=== PATIENT | male | born 1980 | race African-American/Black ===

== ENCOUNTER 2016-11-20 13:22 | Emergency (ER) | payer SELFPAY ==
[~2016-11-20] VITALS: Ht 170.2 cm; Wt 98.0 kg
[~2016-11-20 13:22] MED LIST: ERYT.5%O LEFT EYE; ULTR50TA PO
[2016-11-20 13:24] VITALS: BP 156/79; PULSE 104; RESP 17; TEMP 98.2; O2SAT 98
--- NOTE | 2016-11-20 13:35 | PD ---
Physical Exam Time Seen by Provider: 13:35 Narrative 36 y/o male with sore throat, h/a, cp with deep inspiration, cough. Vital signs reviewed. Seen at triage desk. Awaiting bed placement. Data Data Last Documented VS Vital Signs Date Time Temp Pulse Resp B/P Pulse Ox O2 Delivery O2 Flow Rate FiO2 11/20/16 13:24 98.2 104 17 156/79 98 MDM Medical Record Reviewed: Yes Supervised Visit with EDDIE: Carlos Slaughter Nov 20, 2016 13:35
--- NOTE | 2016-11-20 14:05 | PD ---
HPI Chief Complaint: Respiratory Symptoms Time Seen by Provider: 14:00 Travel History International Travel<30 days: No Contact w/Intl Traveler<30days: No Traveled to known affect area: No History of Present Illness HPI Patient comes in complaining of cold-like symptoms ongoing for 8 months. Patient reports intermittent cough, chest pain with deep, and headaches. Patient states today he awoke with sore throat. Patient states he's never been evaluated for this previously. Patient states a relative of his has influenza. Patient denies any nausea, vomiting, abdominal pain, loss change in bowel or bladder, numbness or tingling anywhere, shortness of breath, or fevers. Patient using [id number] medications and has been helping, however he did not have anything today as he was at work when he got feeling bad and decided come to the emergency department. Denies any recent travel or lower extremity edema. PFSH Past Medical History Medical History: Denies Significant Hx Tetanus Vaccination: < 5 Years Past Surgical History Surgical History: No Previous Surgery Social History Alcohol Use: No Tobacco Use: No Substance Use: No Allergies-Medications (Allergen,Severity, Reaction): Coded Allergies: No Known Allergies (Verified , 11/20/16) Reported Meds & Prescriptions Reported Meds & Active Scripts Active Ventolin Hfa 18 GM Inh (Albuterol Sulfate) 90 Mcg/Act Aer 2 Puff INH Q4H PRN Review of Systems Except as stated in HPI: all other systems reviewed are Neg Physical Exam Narrative GENERAL: Well-developed, overly nourished, in no acute distress, and non-ill appearing. SKIN: Focused skin assessment warm and dry. HEAD: Atraumatic. Normocephalic. EYES: Pupils equal and round. EOMI. No scleral icterus. No injection or drainage. ENT: No nasal bleeding or discharge. Mucous membranes pink and moist. Tympanic membranes pearly gloria bilaterally. Posterior pharynx nonerythematous without exudate. Uvula is midline. No tenderness to facial sinuses to palpation. NECK: Trachea midline. No cervical lymphadenopathy. Supple. No nuclear rigidity. CARDIOVASCULAR: Regular rate and rhythm. No murmur appreciated. RESPIRATORY: No accessory muscle use. No respiratory distress. Clear to auscultation. Breath sounds equal bilaterally. MUSCULOSKELETAL: No obvious deformities. No clubbing. No cyanosis. No edema. Full range of motion. NEUROLOGICAL: Awake and alert. No obvious cranial nerve deficits. Motor grossly within normal limits. Normal speech. PSYCHIATRIC: Appropriate mood and affect; insight and judgment normal. Data Data Last Documented VS Vital Signs Date Time Temp Pulse Resp B/P Pulse Ox O2 Delivery O2 Flow Rate FiO2 11/20/16 13:24 98.2 104 17 156/79 98 Orders Electrocardiogram (11/20/16 13:37) Chest, Pa & Lat (11/20/16 13:37) Group A Rapid Strep Screen (11/20/16 13:58) Influenzae A/B Antigen (11/20/16 13:58) Strep Culture (Group A) (11/20/16 14:00) MDM Medical Decision Making Medical Screen Exam Complete: Yes Emergency Medical Condition: Yes Interpretation(s) EKG reviewed by Dr. Stuart shows sinus rhythm with ventricular rate of 93. No STEMI. Chest x-ray read by the radiologist shows: No acute cardiopulmonary disease identified. Differential Diagnosis Pneumonia, bronchitis, viral syndrome, allergic rhinitis, influenza, strep pharyngitis, bronchitis, pleurisy, other Narrative Course The patient is moving air well and in no distress nor significant dyspnea, and oxygen saturation is within normal limits. There is no clinical evidence to suggest thoracic aortic aneurysms or pathology, nor evidence to suggest pulmonary embolism, pericarditis, pneumothorax, nor pneumonia at this time. The patient has no significant risk factors for cardiac disease, pulmonary embolism or aortic disease. The patient was instructed to return if worsens in anyway, persists, changes, difficulty breathing or wheezing, persistent fever, chest pain or as needed. Diagnosis, plan of care and management were discussed with the patient who agreed with plan and is ready to go home. Patient in no obvious distress upon re-evaluation. All pertinent laboratory/ Radiology result(s) discussed with patient/family. Discussed patient with Dr. Stuart prior to discharge, who is in agreement with plan of care and disposition. Patient was asked if they wanted to speak to my attending, which the patient did not wish to do at this time. Any questions/concerns in reference to patient diagnosis/condition discussed and clarified prior to patient's discharge. Reinforced sheer importance of close follow up with patient's primary physician or primary care clinic. Instructed patient to return to ED immediately, if symptoms return/worsen. Pt showed understanding of above instructions. Further instructions and recommendations were detailed in discharge paperwork. Pt ambulated without difficulty out of ED at discharge. Diagnosis Primary Impression: Pleurisy Patient Instructions: General Instructions, Pleurisy (ED) Additional Instructions: Follow-up with your primary care physician in 3-5 days for evaluation. Take all medication as prescribed. Continue using [id number] medication for symptomatic relief as needed. Follow instructions on the packaging. Drink plenty of non-caffeinated and nonalcoholic fluids. Return to the emergency department if symptoms get worse. Med/Other Pt SpecificInfo: Prescription(s) given Scripts Albuterol 18 GM Inh (Ventolin Hfa 18 GM Inh)90 Mcg/Act Aer2 Puff INH Q4H PRN ( COUGH) #1 INHALER Ref 0 Prov:Jorge Luis Stuart MD 11/20/16 Disposition: 01 DISCHARGE HOME Condition: Stable [place] Nov 20, 2016 14:05
--- NOTE | 2016-11-20 14:06 | RADRPT ---
EXAM DATE/TIME: 11/20/2016 13:59 [facility] COMPARISON: No previous studies available for comparison. INDICATIONS : Patient has had pain off and on in chest for eight months. Patient is a smoker. MEDICAL HISTORY : None. SURGICAL HISTORY : None. ENCOUNTER: Initial ACUITY: 7 - 11 months PAIN SCORE: 7/10 LOCATION: Bilateral chest FINDINGS: PA and lateral views of the chest. The lungs are clear. Cardiomediastinal silhouette within normal li mits. No evidence of pleural effusion or pneumothorax. CONCLUSION: No acute cardiopulmonary disease identified. Sabino Lara MD on November 20, 2016 at 14:04 Board Certified Radiologist. This report was verified electronically.
[2016-11-20] MEDS ORDERED: VENTAER INH (15:05)
--- NOTE | 2016-11-21 15:30 | EKG ---
Date Performed: 11/20/2016 Time Performed: 14:02:01 PTAGE: 36 years EKG: Sinus rhythm POSSIBLE LEFT ATRIAL ENLARGEMENT POSSIBLE RIGHT VENTRICULAR CONDUCTION DELAY BORDERLINE ECG NO PREVIOUS TRACING DOCTOR: Nader Hess Interpretating Date/Time 11/21/2016 15:29:55
== END 2016-11-20 15:19 | disposition home or self-care (01) ==
LOC: NEPD 13:22
DX: R09.1 Pleurisy (principal); R94.31 Abnormal electrocardiogram [ECG] [EKG]
CPT/HCPCS: 71020; 87081; 87804; 87880; 93005